=== PATIENT | female | born 1985 | race African-American/Black ===

== ENCOUNTER 2024-08-08 08:07 | Emergency (ER) | payer MEDICAID ==
[~2024-08-08] VITALS: Ht 167.6 cm; Wt 133.8 kg
[2024-08-08 08:18] VITALS: BP 140/85; PULSE 77; RESP 16; TEMP 98.9; O2SAT 99
[2024-08-08 09:16] LABS: APPEARANCE,URINE CLEAR (CLEAR); BILIRUBIN,URINE NEGATIVE (NEGATIVE); BLOOD, URINE NEGATIVE (NEGATIVE); COLOR,URINE YELLOW (YELLOW); LEUKOCYTE ESTERASE ,URINE NEGATIVE (NEGATIVE); NITRITE, URINE NEGATIVE (NEGATIVE); PROTEIN,URINE NEGATIVE (NEGATIVE); UGLUCOSE NEGATIVE (NEGATIVE); UROBILINOGEN,URINE 0.2 EU/dL (0.2 - 1)
[2024-08-08] MEDS ORDERED: OMEP40EC23 PO (09:24)
[2024-08-08] MEDS ORDERED: IBUP-2213 PO (09:24)
[2024-08-08 09:30] VITALS: BP 143/76; PULSE 71; RESP 12; TEMP 98.1; O2SAT 99
== END 2024-08-08 09:30 | disposition home or self-care (01) ==
LOC: MED 08:07
DX: R10.13 Epigastric pain (principal); R03.0 Elevated blood-pressure reading, without diagnosis of hypertension; F12.90 Cannabis use, unspecified, uncomplicated; Z79.899 Other long term (current) drug therapy
CPT/HCPCS: 81003; 81025; 99283